=== PATIENT | female | born 1955 | race Caucasian/White ===

== ENCOUNTER 2018-06-26 15:40 | Emergency (ER) | payer MEDICARE ==
--- NOTE | 2018-06-26 17:41 | ER Document Report ---
ED Medical Screen (RME) - General Chief Complaint: Chest Pain Stated Complaint: CHEST PAIN Time Seen by Provider: 06/26/18 17:24 Notes: Patient is complaining of chest pain in the right chest and in her right arm that started evening. It got worse yesterday and even worse today so she is here to be evaluated. Patient is from [place] and visiting her family here in [place]. She has a history of extensive cardiovascular disease with having had stents put in the arteries of both legs. Also had stents put in both kidneys and 1 of them so she only has 1 functioning kidney. 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 Says she is taking her medicines like she is supposed to. Does not have them with her. Denies ever having heart attack. Patient says she is taking her blood pressure medicines and has a cough at home and says her blood pressure at home is been running as high as 225 systolic. PMH: Depression Physical Exam - Vital signs Vitals: Temp Pulse Resp BP Pulse Ox 97.5 F 64 18 203/60 H 95 06/26/18 15:49 06/26/18 15:49 06/26/18 15:49 06/26/18 15:49 06/26/18 15:49 Course - Vital Signs Vital signs: Temp Pulse Resp BP Pulse Ox 97.5 F 64 18 203/60 H 95 06/26/18 15:49 06/26/18 15:49 06/26/18 15:49 06/26/18 15:49 06/26/18 15:49
[2018-06-26 18:19] LABS: ABSOLUTE EOSINOPHILS # (AUTO) 0.1 10^3/uL (0.0-0.6); ABSOLUTE MONOCYTES (AUTO) 0.4 10^3/uL (0.1-1.4); ABSOLUTE NEUT (AUTO) 2.3 10^3/uL (1.7-8.2); BASOPHILS % (AUTO) 0.8 % (0-2); EOSINOPHILS % (AUTO) 1.9 % (0-6); HEMOGLOBIN 11.7 g/dL (12.0-15.5); LYMPHOCYTES % (AUTO) 51.1 % (13-45); MEAN CORPUSCULAR HEMOGLOBIN 30.1 pg (27.0-33.4); MEAN CORPUSCULAR HGB CONC 33.3 g/dL (32.0-36.0); MEAN CORPUSCULAR VOLUME 90 fl (80-97); MONOCYTES % (AUTO) 7.1 % (3-13); PLATELET COUNT 432 10^3/uL (150-450); RED BLOOD COUNT 3.88 10^6/uL (3.72-5.28); RED CELL DISTRIBUTION WIDTH 14.2 % (11.5-14.0); SEGMENTED NEUTROPHILS % (AUTO) 39.1 % (42-78); TOTAL CELLS COUNTED % (AUTO) 100 %; WHITE BLOOD COUNT 5.8 10^3/uL (4.0-10.5)
[2018-06-26 18:24] LABS: INTERNATIONAL RATION (INR) 0.91; PROTHROMBIN TIME 12.7 SEC (11.4-15.4)
[2018-06-26 18:32] LABS: ALANINE AMINOTRANSFERASE 31 U/L (9-52); ALBUMIN 4.2 g/dL (3.5-5.0); ALKALINE PHOSPHATASE 70 U/L (38-126); ANION GAP 11 (5-19); ASPARTATE AMINO TRANSFERASE 25 U/L (14-36); BILIRUBIN,DIRECT 0.1 mg/dL (0.0-0.4); BILIRUBIN,TOTAL 0.1 mg/dL (0.2-1.3); BLOOD UREA NITROGEN 22 mg/dL (7-20); CALCIUM 10.1 mg/dL (8.4-10.2); CARBON DIOXIDE 27 mmol/L (22-30); CHLORIDE 105 mmol/L (98-107); CREATINE KINASE 102 U/L (30-135); GLUCOSE 89 mg/dL (75-110); POTASSIUM 4.3 mmol/L (3.6-5.0); SODIUM 143.2 mmol/L (137-145); TOTAL PROTEIN 7.9 g/dL (6.3-8.2)
--- NOTE | 2018-06-26 18:38 | ER Document Report ---
ED General - General Chief Complaint: Chest Pain Stated Complaint: CHEST PAIN Time Seen by Provider: 06/26/18 17:24 Notes: Patient is a 63-year-old female with peripheral vascular disease that presents to the emergency department for chief complaint of back pain, chest pain, and leg pain. Patient states that she is visiting in town, and has been having acute on chronic pain mainly in her back and right lower leg. She also mentions she had chest pain yesterday evening, and today, that was over the right side of her chest, not worse with exertion, she currently denies having any pain. She described the pain in her chest, has an aching sensation, that lasted about 30 minutes, she did take aspirin earlier today. The other pain she is having is low back pain, which is chronic for her, as well as the right lower extremity pain which is also chronic but seems to be worse. She states she has been out shopping and doing more activity than she is used to, and thinks it is more of an exacerbation of her chronic pain. She usually takes Orogrande for her pain, but she has run out of this medication since she is from out of town. She denies history of CAD, diabetes. Past Medical History: Peripheral vascular disease, hypertension, chronic low back pain, renal artery stenosis Past Surgical History: Bilateral lower extremity bypass, renal artery stenting Social History: Former smoker, denies current alcohol or illicit drug use. Family History: Reviewed and noncontributory for presenting illness Allergies: Reviewed, see documented allergy list. REVIEW OF SYSTEMS: Other than noted above, the 12 point review of systems was reviewed with the patient and were negative, all pertinent findings are included in the HPI. PHYSICAL EXAMINATION: Vital signs reviewed, nursing noted reviewed. GENERAL: Well-appearing, well-nourished and in no acute distress. HEAD: Atraumatic, normocephalic. EYES: Eyes appear normal, extraocular movements intact, sclera anicteric, conjunctiva are normal. ENT: nares patent, oropharynx clear without exudates. Moist mucous membranes. NECK: Normal range of motion, supple without lymphadenopathy LUNGS: Breath sounds clear to auscultation bilaterally and equal. No wheezes rales or rhonchi. HEART: Regular rate and rhythm without murmurs, distal pulses are palpable in the lower extremities, +2/4 in both DP pulses ABDOMEN: Soft, nontender, normoactive bowel sounds. No rebound, guarding, or rigidity. No masses appreciated. Back: Nontender to palpate to the midline of the lumbar thoracic spine, mild paraspinal tenderness in the lumbar spine on the right. EXTREMITIES: Nontender, good range of motion, no pitting or edema. NEUROLOGICAL: No focal neurological deficits. Moves all extremities spontaneously Motor and sensory grossly intact on exam. PSYCH: Normal mood, normal affect. SKIN: Warm, Dry, normal turgor, no rashes or lesions noted on exposed skin Past Medical History - Social History Smoking Status: Never Smoker Family History: Reviewed & Not Pertinent Patient has suicidal ideation: No Patient has homicidal ideation: No - Past Medical History Cardiac Medical History: Reports: Hx Heart Attack, Hx Hypertension Renal/ Medical History: Denies: Hx Peritoneal Dialysis Musculoskeletal Medical History: Reports Hx Arthritis Psychiatric Medical History: Reports: Hx Bipolar Disorder, Hx Depression - and anxiety Past Surgical History: Reports: Hx Cholecystectomy, Hx Kidney (Renal Surgery) - one kidney left, with stent, Hx Vascular Surgery - bypass in bilat legs Physical Exam - Vital signs Vitals: Temp Pulse Resp BP Pulse Ox 97.5 F 64 18 203/60 H 95 06/26/18 15:49 06/26/18 15:49 06/26/18 15:49 06/26/18 15:49 06/26/18 15:49 Course - Re-evaluation Re-evalutation: Patient seen and examined vital signs reviewed. Laboratory data and imaging were ordered as appropriate for the patient's presenting symptoms and complaint, with consideration of any critical or life threatening conditions that may be associated with their obtained history and exam as noted above. Patient was treated with Orogrande 5 mg / 325 mg Results were reviewed when available and demonstrated nonischemic EKG, negative chest x-ray, troponins negative x2, otherwise patient's workup was unremarkable The patient was re-evaluated and was stable and improved Evaluation was most consistent with atypical chest pain, patient's heart score is 3 based on risk factors and age, patient to negative troponins, I feel the patient can be safely discharged to follow-up with her primary care physician in [place], she is advised if her chest pain returns to return to the emergency department to be reevaluated, she is agreeable to this plan of care, she was given a Orogrande dispense pack, to take for her chronic low back pain, and leg pain, and also given a prescription, for Orogrande until she can follow-up when she gets home. Results were discussed with the patient at this point, after careful consideration I feel that that patient can be discharged from the emergency department, the patient was educated treatments and reasons to return to the emergency department based on their presumed diagnosis as noted above, they were advised to followup with a primary care physician in 2-3 days. Patient was agreeable to plan of care. *Note is created using voice recognition software and may contain spelling, syntax or grammatical errors. Laboratory 06/26/18 06/26/18 06/26/18 18:05 18:05 18:05 WBC 5.8 RBC 3.88 Hgb 11.7 L Hct 35.0 L MCV 90 MCH 30.1 MCHC 33.3 RDW 14.2 H Plt Count 432 Seg Neutrophils % 39.1 L Lymphocytes % 51.1 H Monocytes % 7.1 Eosinophils % 1.9 Basophils % 0.8 Absolute Neutrophils 2.3 Absolute Lymphocytes 3.0 Absolute Monocytes 0.4 Absolute Eosinophils 0.1 Absolute Basophils 0.0 PT 12.7 INR 0.91 Sodium 143.2 Potassium 4.3 Chloride 105 Carbon Dioxide 27 Anion Gap 11 BUN 22 H Creatinine 0.95 Est GFR ( Amer) > 60 Est GFR (Non-Af Amer) 59 L Glucose 89 Calcium 10.1 Total Bilirubin 0.1 L Direct Bilirubin 0.1 Neonat Total Bilirubin Not Reportable Neonat Direct Bilirubin Not Reportable Neonat Indirect Bili Not Reportable AST 25 ALT 31 Alkaline Phosphatase 70 Creatine Kinase 102 CK-MB (CK-2) Troponin I Total Protein 7.9 Albumin 4.2 06/26/18 06/26/18 18:05 21:15 WBC RBC Hgb Hct MCV MCH MCHC RDW Plt Count Seg Neutrophils % Lymphocytes % Monocytes % Eosinophils % Basophils % Absolute Neutrophils Absolute Lymphocytes Absolute Monocytes Absolute Eosinophils Absolute Basophils PT INR Sodium Potassium Chloride Carbon Dioxide Anion Gap BUN Creatinine Est GFR ( Amer) Est GFR (Non-Af Amer) Glucose Calcium Total Bilirubin Direct Bilirubin Neonat Total Bilirubin Neonat Direct Bilirubin Neonat Indirect Bili AST ALT Alkaline Phosphatase Creatine Kinase CK-MB (CK-2) 1.30 Troponin I < 0.012 < 0.012 Total Protein Albumin Chest X-Ray 06/26/18 17:29 IMPRESSION: NO ACUTE RADIOGRAPHIC FINDING IN THE CHEST. - Vital Signs Vital signs: Temp Pulse Resp BP Pulse Ox 97 F L 75 16 180/77 H 98 06/26/18 22:18 06/26/18 22:18 06/26/18 22:18 06/26/18 22:18 06/26/18 22:18 - Laboratory Result Diagrams: 06/26/18 18:05 06/26/18 18:05 Laboratory results interpreted by me: 06/26/18 06/26/18 18:05 18:05 Hgb 11.7 L Hct 35.0 L RDW 14.2 H Seg Neutrophils % 39.1 L Lymphocytes % 51.1 H BUN 22 H Est GFR (Non-Af Amer) 59 L Total Bilirubin 0.1 L - EKG Interpretation by Me Additional EKG results interpreted by me: EKG demonstrates sinus rhythm with a ventricular rate of 61 bpm, normal axis, QTC 440 ms, there is no evidence of acute ischemia on this EKG. Discharge - Discharge Clinical Impression: Chest pain Qualifiers: Chest pain type: unspecified Qualified Code(s): R07.9 - Chest pain, unspecified Leg pain Qualifiers: Laterality: right Qualified Code(s): M79.604 - Pain in right leg Back pain Qualifiers: Back pain location: low back pain Chronicity: chronic Back pain laterality: bilateral Sciatica presence: without sciatica Qualified Code(s): M54.5 - Low back pain Condition: Stable Disposition: HOME, SELF-CARE Instructions: Chronic Back Pain ([facility]), Chest Pain of Unclear Cause ([facility]) Additional Instructions: Please return to the emergency department if you have any worsening, or concern of your symptoms. Please return to the emergency department if you develop chest pain, difficulty breathing, severe abdominal pain, or ongoing vomiting. Please follow-up with your primary care physician in 2-3 days and any other recommended physicians. If prescribed, take all medications as directed. If you have any questions or concerns do not hesitate to return the emergency department for evaluation. Prescriptions: Hydrocodone/Acetaminophen [Orogrande 7.5-325 mg Tablet] 1 tab PO Q6H PRN #6 tablet PRN Reason: back pain Referrals: LOIDA GUERIN DO [NO LOCAL MD] - Follow up in 3-5 days (or your primary care in [place]. )
[2018-06-26 18:46] LABS: TROPONIN I < 0.012 ng/mL
--- NOTE | 2018-06-26 18:46 | RADIOLOGY REPORT (SQ) ---
EXAM DESCRIPTION: CHEST SINGLE VIEW COMPLETED DATE/TIME: 06/26/2018 6:22 pm REASON FOR STUDY: Right-sided chest pain, portable COMPARISON: None. EXAM PARAMETERS: NUMBER OF VIEWS: One view. TECHNIQUE: Single frontal radiographic view of the chest acquired. RADIATION DOSE: NA LIMITATIONS: None. FINDINGS: LUNGS AND PLEURA: No opacities, masses or pneumothorax. No pleural effusion. MEDIASTINUM AND HILAR STRUCTURES: No masses. Contour normal. HEART AND VASCULAR STRUCTURES: Heart normal in size. Normal vasculature. BONES: No acute findings. HARDWARE: None in the chest. OTHER: No other significant finding. IMPRESSION: NO ACUTE RADIOGRAPHIC FINDING IN THE CHEST. TECHNICAL DOCUMENTATION: JOB ID: [id number] [email or web address]- All Rights Reserved Reading location - IP/workstation name: [email or web address]
[2018-06-26] MEDS ORDERED: HYDROCODONE/ACETAMINOPHEN 5-325 MG TABLET PO ONE (19:01)
--- NOTE | 2018-06-26 21:42 | EKG REPORT ---
SEVERITY:- NORMAL ECG - SINUS RHYTHM : Confirmed by: Concha Cutler MD 26-Jun-2018 21:42:09
[2018-06-26] MEDS ORDERED: HYDROCODONE/ACETAMINOPHEN 5-325 MG (6 TAB/ER DISP) PO PRN (22:09)
[2018-06-26 22:19] VITALS: BP 180/77
== END 2018-06-26 22:19 | disposition home or self-care (01) ==
LOC: ER 15:40
DX: R07.9 Chest pain, unspecified (principal); G89.29 Other chronic pain; M54.5 Low back pain; M79.661 Pain in right lower leg; T39.96XA Underdosing of unspecified nonopioid analgesic, antipyretic and antirheumatic, initial encounter; Z91.128 Patient's intentional underdosing of medication regimen for other reason; Z91.14 Patient's other noncompliance with medication regimen; I10 Essential (primary) hypertension; I25.2 Old myocardial infarction; I73.9 Peripheral vascular disease, unspecified; Z98.62 Peripheral vascular angioplasty status; Z90.5 Acquired absence of kidney
CPT/HCPCS: 93005; 99285; 36415; 82553; 82550; 85025; 85610; 80053; 84484; 71045; 93010; A9270 ×2